=== PATIENT | male | born 1970 | race Caucasian/White ===

== ENCOUNTER 2020-11-17 19:21 | Inpatient (IN) | payer OTHER ==
[~2020-11-17] VITALS: Ht 170.2 cm; Wt 70.3 kg
--- NOTE | ~2020-11-17 | OP ---
[address] [address] OPERATIVE REPORT Name: LESTER TAYLOR Room: [address] IN [facility]#: [id number] Admission: 11/18/20 Attend Phys: Linette Hart MD Discharge: Date of : 72 Report #: [id number] THIS REPORT FOR: cc: Miko Boyd Ghaison F. DO ~ Parrish Melvin DO PREOPERATIVE DIAGNOSES: 1. Left distal one-third comminuted intraarticular distal tibia fracture. 2. Left comminuted distal one-third fibular fracture. POSTOPERATIVE DIAGNOSES: 1. Left distal one-third comminuted intraarticular distal tibia fracture. 2. Left comminuted distal one-third fibular fracture. PROCEDURE: Closed reduction and intramedullary nailing, left distal one-third comminuted intraarticular tibial fracture. SURGEON: Parrish Melvin DO ASSISTANTS: Melvin Chaudhry DO and Cory Tipton DO ANESTHESIA: General. ANTIBIOTICS: Ancef IV. INTRAVENOUS FLUIDS: 450 mL lactated Ringer's. ESTIMATED BLOOD LOSS: 150 mL. COMPLICATIONS: None. SPECIMENS: None. DRAINS: None. CONDITION OF PATIENT: Stable to PACU. IMPLANTS: Esperance T2 alpha tibial nail 10 x 330 mm with 2 distal interlocking screws distally and 2 proximally. INDICATIONS FOR PROCEDURE: Comminuted displaced intra-articular distal one-third tibial shaft fracture with associated fibular fracture. DESCRIPTION OF PROCEDURE: I marked the left lower extremity in the presence of operative team members, everyone agreed correct. He was taken back to the operative suite, placed on the table supine, well-padded and secured. [address] [address] OPERATIVE REPORT Name: LESTER TAYLOR Room: [address] IN [facility].#: [id number] Admission: 11/18/20 Attend Phys: Linette Hart MD Discharge: Date of : 72 Report #: [id number] anesthetic administered. A well-padded tourniquet was placed proximally on the left lower extremity. It was not inflated at any time. That extremity was then sterilely prepped and draped in standard fashion. Timeout was performed indicating correct patient, procedure, site, antibiotics and implants were present and sterile. All team members agreed. We began for insertion points proximal to the patella in line, scalpel through skin, full thickness flaps down, visualized quadriceps tendon and secondary scalpel did go through the joint. He already had some arthritic changes and grooving and cartilage loss within the trochlea and patella as well as some osteophyte, but overall no other obvious findings and there would be enough room for safety suprapatellar insertion. The guide was then placed, was well seated and the joint protected at all times throughout the entire case. We placed a guidewire in appropriate position on AP and lateral images, advanced it and then reamed over. A ball-tipped guidewire placed down to the fracture site, had an anatomic reduction through a closed fascia and passed a ball-tipped guidewire uneventfully well seated and the lateral image confirmed our length at 330 mm. While keeping the tibia anatomically reduced, we then began reaming. We reamed for a 10 nail sequentially making sure that we paid attention on the lateral and AP images looking to make sure no displacement of our comminuted intraarticular segment. The final nail was drawn back table after implant timeout performed. We then inserted the nail over the guidewire and went down uneventfully as planned and reduction was anatomic while reaming, very careful while final seating of the nail. No obvious intra-articular displacement or issue with the nail seating. While controlling for rotation, we then made incisions, drilled, measured and placed 2 distal screws in perfect ute technique, confirmed that our reduction was anatomic for the tibia and fibula with great protestant of length and alignment and rotation of the ankle joint was excellent. We then used the external aiming guide to ____ well. These were ____ purchase. We then ____ all aspects from within the joint. No changes felt from prior to any insertion of instruments. No loose bodies, changed gloves, thoroughly irrigated with normal saline throughout the joint. Final images showed excellent placement of hardware ____ irrigated from within the joint at all surgical sites. Final images showed excellent placement of hardware and fracture reduction including the fibula. With the fibula being so comminuted and long, fixing the fibula would increase construct stiffness and therefore could lead to nonunion of tibia. With the fibula being an excellent reduction, we left nonoperatively. It should be noted that we performed stress views of the ankle. No evidence of syndesmotic instability and no evidence of instability of the fibula. Closed the tendon with #1 Vicryl, subcutaneous with 2-0 Monocryl and skin 3-0 nylon. All percutaneous incision sites closed with 3-0 nylon. Debriefing performed confirming procedure, blood loss and that all counts were correct and final. All team members agreed. Sterile dressings were applied. His compartments were very soft and compressible. He had palpable pedal pulses. He was extubated and taken to PACU in stable. [address] [address] OPERATIVE REPORT Name: LESTER TAYLOR Room: [address] IN [facility]#: [id number] Admission: 11/18/20 Attend Phys: Linette Hart MD Discharge: Date of : 72 Report #: [id number] POSTOPERATIVE COURSE AND EVALUATION: I spoke with his , addressed questions she had to her satisfaction. She was very thankful for my time and efforts. He was resting in PACU with stable vital signs, pain controlled, neurovascularly intact. No pain out of proportion with passive stretching. Compartments soft and compressible. No sign of DVT. We will be not allowing weightbearing as this was an intraarticular fracture. This will be for at least 6 weeks. Range of motion will be encouraged as appropriate. Mechanical and pharmacological DVT prophylactic measures until instructed otherwise. PT, OT, case management to help with discharge planning with followup 2 weeks, sooner if need be in the office once discharged. This was relayed to the patient and . COVID protocol followed at all times. By: 1859 50Parrish Melvin, DO /nt
[2020-11-17 19:22] VITALS: BP 131/75
[2020-11-17] MEDS ORDERED: SIMVASTATIN80 MG PO (19:26)
[2020-11-17] MEDS ORDERED: OMEPRAZOLE 20 M20 M1 PO (19:26)
[2020-11-17 19:56] LABS: ABSOLUTE BASOPHILS 0.1 thou/uL (0.0-0.2); ABSOLUTE EOSINOPHILS 0.2 thou/uL (0.0-0.7); ABSOLUTE LYMPHOCYTES 3.2 thou/uL (0.8-5.3); ABSOLUTE MONOCYTES 0.9 thou/uL (0.0-1.2); ABSOLUTE NEUTROPHILS 7.5 thou/uL (1.6-8.1); BASOPHILS 0.5 %; EOSINOPHILS 1.3 %; HEMATOCRIT 44.7 % (42.0-52.0); HEMOGLOBIN 15.8 gm/dL (14.0-18.0); LYMPHOCYTES 26.8 %; MCH 31.8 pg (26.0-34.0); MCHC 35.4 g/dL (28.0-37.0); MCV 89.8 fL (80.0-100.0); NUCLEATED RBCS 0 /100WBC; PLATELET COUNT* 324 thou/uL (150-400); POLYS 63.4 %; RBC 4.97 mil/uL (4.50-6.00); RDW-CV 12.8 % (10.5-14.5); WBC 11.9 thou/uL (4.0-11.0)
[2020-11-17 20:06] LABS: CALCIUM 9.5 mg/dL (8.5-10.1); CREATININE 1.1 mg/dL (0.6-1.3); POTASSIUM 3.7 mmol/L (3.5-5.1)
[2020-11-17 20:09] LABS: TOTAL BILIRUBIN 1.5 mg/dL (<0.1-1.0)
[2020-11-17 20:54] LABS: APTT 22.2 Seconds (25.0-31.3); PROTIME 10.6 Seconds (9.20-11.50)
[2020-11-17 21:30] VITALS: BP 123/61; BP 132/72
[2020-11-18 08:15] VITALS: BP 127/73
--- NOTE | 2020-11-18 09:07 | EKG ---
[place] [address] ELECTROCARDIOGRAM REPORT Name: LESTER TAYLOR Room: [address]R.#: [id number] Admission: 11/17/20 Attend Phys: Linette Hart, Discharge: Date of : 72 Date of Service: 11/17/202053 Report #: [id number] THIS REPORT FOR: //name// [facility] ED Test Date: 2020-11-17 Test Time: 20:54:52 Pat Name: LESTER TAYLOR Department: Room: [facility] Gender: M Chair: CARI : 1970 Requested By: Stacy Maldonado Order Number: [id number] MD: Jas Garcia Measurements Intervals [place] Rate: 89 P: 40 AL: 173 QRS: 9 QRSD: 87 T: 8 QT: 344 QTc: 419 Interpretive Statements Sinus rhythm Low voltage, precordial leads RSR' in V1 or V2, right VCD or RVH No previous ECG available for comparison Electronically Signed On 11-18-2020 9:07:33 PROPERTY COORDINATOR by Jas Garcia [email or web address] <ELECTRONICALLY SIGNED> By: Jas Garcia MD, FACC 11/18/20906 53 53 Jas Garcia MD, [facility] /EPI
[2020-11-18 14:50] VITALS: BP 127/73
[2020-11-18 15:50] VITALS: BP 117/72
[2020-11-18 17:03] LABS: CALCIUM 9.4 mg/dL (8.5-10.1); CREATININE 0.8 mg/dL (0.6-1.3); POTASSIUM 3.8 mmol/L (3.5-5.1)
[2020-11-18 17:06] LABS: PHOSPHORUS* 2.9 mg/dL (2.5-4.9)
[2020-11-18 22:40] VITALS: BP 136/88
[2020-11-19 00:18] VITALS: BP 117/72
[2020-11-19 04:00] VITALS: BP 115/72
[2020-11-19 04:36] LABS: HEMATOCRIT 42.1 % (42.0-52.0); HEMOGLOBIN 14.7 gm/dL (14.0-18.0)
[2020-11-19 11:28] VITALS: BP 113/68
[2020-11-19 16:04] VITALS: BP 109/62
[2020-11-19 16:15] VITALS: BP 109/62
[2020-11-19 20:00] VITALS: BP 122/64
[2020-11-20 05:15] LABS: HEMATOCRIT 37.9 % (42.0-52.0); HEMOGLOBIN 13.4 gm/dL (14.0-18.0)
[2020-11-20 08:00] VITALS: BP 114/71
[2020-11-20 09:47] VITALS: BP 109/62
[2020-11-20] MEDS ORDERED: ELIQUIS5 MG PO (10:09)
[2020-11-20] MEDS ORDERED: OXYCODONE HCL 55 MG PO (10:09)
[2020-11-20] MEDS ORDERED: COLACE 100 MG100 MG PO (10:09)
[2020-11-20] MEDS ORDERED: MIRALAX17 GM PO (10:09)
[2020-11-20 10:39] VITALS: BP 109/62
[2020-11-20 11:07] VITALS: BP 109/62
[2020-11-20 11:28] VITALS: BP 109/62
== END 2020-11-20 11:00 | disposition home health service (06) | DRG 493 ==
LOC: M.ERS 19:21 → M.ORTHSURG 20:41 → M.TBA-ER 20:41 → M.ORTHSURG 22:10
PROVIDERS: Internal Medicine; Orthopaedic Surgery; Personal Emergency Response Attendant; ADMIT Internal Medicine; ATTEND Internal Medicine
PROC: 2W3TX1Z Immobilization of Left Foot using Splint (ICD-10-PCS; principal; 2020-11-18)
PROC: 0QSH06Z Reposition Left Tibia with Intramedullary Internal Fixation Device, Open Approach (ICD-10-PCS; 2020-11-18)
DX: S82.392A Other fracture of lower end of left tibia, initial encounter for closed fracture (principal); R65.10 Systemic inflammatory response syndrome (SIRS) of non-infectious origin without acute organ dysfunction; S82.455A Nondisplaced comminuted fracture of shaft of left fibula, initial encounter for closed fracture; W18.39XA Other fall on same level, initial encounter; E78.5 Hyperlipidemia, unspecified; K21.9 Gastro-esophageal reflux disease without esophagitis; Z20.822 Contact with and (suspected) exposure to COVID-19; Z79.899 Other long term (current) drug therapy; Y93.89 Activity, other specified; Y92.89 Other specified places as the place of occurrence of the external cause; Y99.8 Other external cause status

== ENCOUNTER 2020-11-23 23:22 | Emergency (ER) | payer OTHER ==
[~2020-11-23] VITALS: Ht 170.2 cm; Wt 72.6 kg
[~2020-11-23 23:22] MED LIST: COLACE 100 MG100 MG PO; ELIQUIS5 MG PO; MIRALAX17 GM PO; OMEPRAZOLE 20 M20 M1 PO; OXYCODONE HCL 55 MG PO; SIMVASTATIN80 MG PO
[2020-11-24 00:06] VITALS: BP 120/72
== END 2020-11-24 00:06 | disposition home or self-care (01) ==
LOC: M.ERS 23:22
DX: M79.675 Pain in left toe(s) (principal); E78.5 Hyperlipidemia, unspecified; K21.9 Gastro-esophageal reflux disease without esophagitis

== ENCOUNTER → 2020-11-30 | Outpatient (CLI) | payer OTHER | LOC: M.LAB 10:33 | PROVIDERS: ATTEND Orthopaedic Surgery | DX: Z48.89 Encounter for other specified surgical aftercare (principal) ==